=== PATIENT | female | born 1945 | race Caucasian/White ===

== ENCOUNTER 2025-08-09 14:08 | Emergency (ER) | payer OTHER, SELFPAY ==
[2025-08-09 14:10] VITALS: PULSE 98; O2SAT 94
--- NOTE | 2025-08-09 14:16 | PD.EDUPEX ---
Upper Extremity Injury RME/HPI General Chief Complaint: Extremity Injury, Upper Stated Complaint: RIGHT SHOULDER PAIN Time Seen by Provider: 08/09/25 14:12 Arrival date/time: 08/09/25 14:08 RME / HPI RME / HPI narrative: 80 year old female with history of CAD s/p PCI, hypertension, COPD on home oxygen, hypothyroidism presents to the ED BIBA from home for evaluation of right shoulder pain following a ground level mechanical fall that occurred yesterday evening. States she was walking inside of her home and tripped on her oxygen tubing, causing her to fall and land on the right side. Reports pain to the right shoulder since fall, described as aching in sensation, rating 8/10 in severity. Aggravated with movements, minimally improved with immobilization. Denies head injury or LOC. Denies neck pain, pain to the right clavicle, or right elbow. No other injuries or complaints reported. States she is on Aspirin, no other blood thinner use. Related Data Home Medications ?Medication ?Instructions ?Recorded ?Confirmed albuterol sulfate 90 mcg/actuation 2 puff inhalation Q4H PRN Wheezing 03/08/14 09/30/22 aerosol inhaler (ProAir HFA) ##0 atenolol 25 mg tablet 25 mg PO BID 09/30/22 10/03/22 atorvastatin 10 mg tablet 10 mg PO HS 09/30/22 09/30/22 cyclobenzaprine 5 mg tablet 5 mg PO PRN PRN Back Pain 09/30/22 09/30/22 levothyroxine 100 mcg tablet 100 mcg PO DAILY 09/30/22 09/30/22 olmesartan 20 mg tablet 20 mg PO QDAY 09/30/22 09/30/22 promethazine 6.25 mg/5 mL oral 12.5 mg PO Q6HR PRN Cough 10/02/22 10/02/22 syrup Previous Rx's ?Medication ?Instructions ?Recorded acetaminophen 325 mg tablet 650 mg (2 x 325 mg) PO Q6H PRN 10/04/22 Fever >101.5 #30 tabs acetaminophen 650 mg rectal 650 mg UT Q6H PRN Pain Scale 1-3 10/04/22 suppository (Mild #30 ea azithromycin 250 mg tablet 250 mg PO QDAY #30 tabs 10/04/22 calcitonin (salmon) 200 1 spry Nasally QDAY #30 mL 10/04/22 unit/actuation nasal spray calcium 600 mg (as 600 mg PO BID #30 tabs 10/04/22 carbonate)-vitamin D3 10 mcg (400 unit) tablet dextrose 50 % in water (D50W) 25 ml IV PRNMRX1 PRN Hypoglycemia 10/04/22 #30 mL gabapentin 100 mg capsule 100 mg PO BID #30 caps 10/04/22 glucagon 1 mg solution for 1 mg IM PRN PRN Hypoglycemia #30 ea 10/04/22 injection (Glucagon Emergency Kit) heparin (porcine) 5,000 unit/mL 5,000 unit subcut Q12H #30 mL 10/04/22 injection solution hydrocodone 5 mg-acetaminophen 325 1 tab PO Q6HR PRN Pain 4-7 #10 tabs 10/04/22 mg tablet ipratropium bromide 0.02 % 0.5 mg (2.5 mL) INH Q2HR PRN 10/04/22 solution for inhalation Shortness Of Breath Or Wheeze #75 mL ipratropium bromide 0.02 % 0.5 mg (2.5 mL) INH Q6HRRT #75 mL 10/04/22 solution for inhalation levalbuterol HCl 0.63 mg/3 mL 0.63 mg (3 mL) INH Q2H PRN 10/04/22 solution for nebulization Wheezing or SOB #75 mL levalbuterol HCl 0.63 mg/3 mL 0.63 mg (3 mL) INH Q6HRRT #75 mL 10/04/22 solution for nebulization lidocaine 5 % topical patch 1 patch top UD PRN Pain #10 ea 10/04/22 ondansetron HCl (PF) 4 mg/2 mL 4 mg (2 mL) IV Q6H PRN Nausea Or 10/04/22 injection solution Vomiting #20 mL pantoprazole 40 mg tablet,delayed 40 mg PO QDAY #3 tabs 10/04/22 release polyvinyl alcohol 1.4 % eye drops 1 drp Both eyes PRN PRN To Keep 10/04/22 Eyes Moist #30 mL prednisone 20 mg tablet 40 mg PO DAILY #6 tabs 10/04/22 sennosides 8.6 mg tablet (Senna 1 tab PO BID PRN Constipation #30 10/04/22 Lax) tabs hydrocodone 10 mg-acetaminophen 1 tab PO Q6H PRN pain #30 tabs 08/09/25 325 mg tablet Allergies Allergy/AdvReac Type Severity Reaction Status Date / Time codeine Allergy Unknown Verified 10/30/19 13:26 Review of Systems Review of Systems Systems Reviewed: All systems reviewed, normal except as documented Past Medical History Past Medical History CARDIAC: Positive Cardiac Disorders (CAD w stent) and Hypertension RESPIRATORY: Positive Chronic Obstructive Pulmonary Disease (COPD), Asthma (COPD) and Pneumonia ENT: Positive Cataracts (cataract surgery in 2019) ENDOCRINE: Positive Hypothyroidism Social History SMOKING STATUS: Former smoker SECOND HAND EXPOSURE: No OCCUPATION: Farm work ED Exam Narrative Physical exam: Generally patient is alert in mild distress secondary to right shoulder pain, extremities show right shoulder swelling and contusion to the proximal and mid anterior right humerus. No step-offs but deformities or tenderness to the clavicle on the right side. No tenderness or swelling to the right elbow., Heart regular rate and rhythm, lungs clear to auscultation equal bilaterally, abdomen soft nondistended nontender, neurologic exam shows a [place] Coma Scale of 15, extremities show the swelling to the proximal right humerus and contusion with strong distal radial and ulnar pulses. Sensation to the entire right upper extremity is intact. Course Quality Measures none Orders Category Date Time Status sling [Splint / Immobilizer] STAT Care 08/09/25 15:49 Active XR shoulder RT min 2V Stat Exams 08/09/25 14:17 Completed HYDROcodone/APAP 10/325 [[place] 10/325] Med 08/09/25 15:49 Discontinued 1 tab PO X1 ONE Vital Signs Vital signs: Vital Signs Temperature 97.8 F 08/09/25 14:19 Pulse Rate 97 08/09/25 14:19 Respiratory Rate 18 08/09/25 14:19 Blood Pressure 135/58 H 08/09/25 14:19 Pulse Oximetry (%) 95 08/09/25 14:19 Oxygen Delivery Method Nasal Cannula 08/09/25 14:19 Oxygen Flow Rate 4 08/09/25 14:19 Extremity Injury MDM Narrative MDM Narrative:: Jes Rosas am scribing for and in the presence of Dr. Alejandro. Patient received 10 mg of hydrocodone p.o. Right arm was placed in a sling. X-ray of the right shoulder shows a comminuted humeral head fracture with slight subluxation. I communicated with Dr. Chao who saw the x-rays and he has agreed to follow-up the patient in his office. He asked for the patient be placed in a sling. Patient is to keep the right arm in the sling. [place] as prescribed. Patient data External records reviewed:: [facility] previous records and EMS form Clinical information provided by:: patient and EMS Social determinants that could affect healthcare access:: none Patient has the following chronic illnesses:: CAD s/p PCI, hypertension, COPD on home oxygen, hypothyroidism How is presenting disease/condition affected by chronic disease/condition?: exacerbated by Evaluation data The following diagnostics were reviewed and interpreted by me:: radiology exam(s) Lab and/or radiology exams considered but not ordered:: None Interpretation Summary: Ordering Physician: Og Alejandro DO Date of Service: 08/09/25 Procedure(s): XR shoulder RT min 2V Accession Number(s): [id number] cc: Anup Ray MD; Og Alejandro DO~ Examination: Shoulder, right, 3 views Technique: Shoulder AP internal rotation, AP external rotation, Y view shoulder, 3 views Exam date and time : August,, 1511 hours INDICATIONS: Ground-level fall yesterday, injury to the shoulder, shoulder pain FINDINGS: Acute fracture humeral neck with minimal impaction Fracture extends to the greater tuberosity of the humeral head No shoulder dislocation IMPRESSION: Acute fractures humeral head and neck without major displacement Dictated By: Anup Ray MD Signed By: <Electronically signed by Anup Ray MD in OV> 08/09/25 1530 Medications / Prescriptions Medications or Prescriptions considered but not ordered:: None Medication administrations:: Medication Administration History Discontinued Medications Hydrocodone Bitart/Acetaminophen (Hydrocodone/Apap 10/325 Tab) 1 tab PO X1 ONE Stop: 08/09/25 15:50 See above Consultations Consultation(s) initiated? (list below): Yes Consultation #1 (Physician, Specialty, Details): I spoke with ortho Dr. Chao. Discussed patients radiology results. He recommends outpatient follow up. Time: 15:45 Diagnosis Upper Extremity Injury Differential Diagnosis: dislocation of shoulder, fracture of humerus and fracture of clavicle Most likely diagnosis given after review of the tests above:: none Admission Indicated Admission indicated?: not indicated Admission Request Was there a request for admission?: No Disposition Plan Disposition Plan: Discharge Discharge Attestation Discharge Attestation: The patient and all family members were given an opportunity to ask questions and understood the discharge instructions. Discharge instructions specifically effects, indications for sooner follow up or return to the emergency department, and the expected course of current diagnosis. Patient condition: Stable Discharge Plan Plan Patient Disposition: HOME (Self Care) Prescriptions/Referrals Prescriptions/Med Rec: New hydrocodone-acetaminophen 10-325 mg tablet 1 tab PO Q6H MDD 4 PRN (Reason: pain) Qty: 30 0RF No Action albuterol sulfate [ProAir HFA] 8.5 GM HFA aerosol inhaler 2 puff Inhalation Q4H PRN (Reason: Wheezing) Qty: 0 atorvastatin 10 mg tablet 10 mg PO HS levothyroxine 100 mcg tablet 100 mcg PO DAILY cyclobenzaprine 5 mg tablet 5 mg PO PRN PRN (Reason: Back Pain) atenolol 25 mg tablet 25 mg PO BID olmesartan 20 mg Tablet 20 mg PO QDAY promethazine 6.25 mg/5 mL syrup 12.5 mg PO Q6HR PRN (Reason: Cough) Patient Comments: TAKE 10 ML BY MOUTH EVERY 6-8 HOURS NEEDED FOR COUGH. MAY CAUSE DROWSINESS sennosides [Senna Lax] 8.6 mg Tablet 1 tab PO BID PRN (Reason: Constipation) Qty: 30 0RF prednisone 20 mg Tablet 40 mg PO DAILY Qty: 6 0RF Taper: Prednisone Taper 20 mg DAILY for 2 Days and 0 Hour 10 mg DAILY for 2 Days and 0 Hour 5 mg DAILY for 7 Days and 0 Hour acetaminophen 325 mg Tablet 650 mg PO Q6H PRN (Reason: Fever >101.5) Qty: 30 0RF acetaminophen 650 mg Suppository 650 mg UT Q6H PRN (Reason: Pain Scale 1-3 (Mild) Qty: 30 0RF azithromycin 250 mg Tablet 250 mg PO QDAY Qty: 30 0RF levalbuterol HCl 0.63 mg/3 mL Solution For Nebulization 0.63 mg INH Q6HRRT Qty: 75 0RF levalbuterol HCl 0.63 mg/3 mL Solution For Nebulization 0.63 mg INH Q2H PRN (Reason: Wheezing or SOB) Qty: 75 0RF hydrocodone-acetaminophen 5-325 mg Tablet 1 tab PO Q6HR MDD 4 PRN (Reason: Pain 4-7) Qty: 10 0RF polyvinyl alcohol 1.4 % Drops 1 drp Both eyes PRN PRN (Reason: To Keep Eyes Moist) Qty: 30 0RF calcitonin (salmon) 200 unit/actuation [place],Non-Aerosol 1 spry Nasally QDAY Qty: 30 0RF pantoprazole 40 mg Tablet,Delayed Release (Dr/Ec) 40 mg PO QDAY Qty: 3 0RF lidocaine 5 % Adhesive Patch,Medicated 1 patch top UD PRN (Reason: Pain) Qty: 10 0RF gabapentin 100 mg Capsule 100 mg PO BID Qty: 30 0RF Glucagon Emergency Kit (human) 1 mg Recon Soln 1 mg IM PRN PRN (Reason: Hypoglycemia) Qty: 30 0RF heparin (porcine) 5,000 unit/mL Solution 5,000 unit subcut Q12H Qty: 30 0RF ipratropium bromide 0.02 % Solution 0.5 mg INH Q6HRRT Qty: 75 0RF ipratropium bromide 0.02 % Solution 0.5 mg INH Q2HR PRN (Reason: Shortness Of Breath Or Wheeze) Qty: 75 0RF dextrose 50 % in water (D50W) Syringe 25 ml IV PRNMRX1 PRN (Reason: Hypoglycemia) Qty: 30 0RF ondansetron HCl (PF) 4 mg/2 mL Solution 4 mg IV Q6H PRN (Reason: Nausea Or Vomiting) Qty: 20 0RF calcium carbonate-vitamin D3 600 mg-10 mcg (400 unit) Tablet 600 mg PO BID Qty: 30 0RF Problem List Clinical Impression: Fracture of head of humerus Patient/Caregiver Discharge Instructions Education Materials: ED Fracture, Shoulder Additional Instructions: Keep the right arm in the sling. [place] as prescribed for pain. Your case was discussed with orthopedic surgeon, Dr. Chao today. Call his office for follow-up at phone number [phone]. Print Language: Malay Stand Alone Forms: [facility] Award Info., Patient Portal Info Letter
[2025-08-09 14:19] VITALS: BP 135/58; PULSE 97; RESP 18; TEMP 36.6; O2SAT 95
[2025-08-09 15:52] VITALS: BMI 19.5
[2025-08-09 16:10] VITALS: BP 136/72; PULSE 94; RESP 19; TEMP 36.4; O2SAT 99
[2025-08-09 17:27] VITALS: BP 123/70; PULSE 94; RESP 22; TEMP 36.1; O2SAT 97
== END 2025-08-09 17:28 | disposition home or self-care (01) ==
LOC: SERX 17:05
PROVIDERS: Emergency Provider Emergency Medicine; PCP Family Medicine
DX: S42.294A Other nondisplaced fracture of upper end of right humerus, initial encounter for closed fracture (principal); W18.09XA Striking against other object with subsequent fall, initial encounter; Y93.01 Activity, walking, marching and hiking; Y92.009 Unspecified place in unspecified non-institutional (private) residence as the place of occurrence of the external cause
CPT/HCPCS: 73030; 99283; A4565; A9270